=== PATIENT | female | born 1940 | race Two or more races ===

== ENCOUNTER → 2017-12-14 | Outpatient (CLI) | payer MEDICARE, OTHER ==
--- NOTE | 2017-12-14 15:35 | CT ---
EXAMINATION TYPE: CT brain wo con DATE OF EXAM: 12/14/2017 COMPARISON: None HISTORY: 77-year-old female transient cerebral ischemic attack TECHNIQUE: Examination was done in axial plane without intravenous contrast. Coronal and sagittal r econstructions performed. CT DLP: 1029.3 mGycm Automated exposure control for dose reduction was used. FINDINGS: There is no evidence of acute intracranial hemorrhage, acute ischemic changes, mass, mass-effect, or extra-axial fluid collection. There is no effacement of cerebral sulci or basal subarachnoid cister ns. There is no hydrocephalus. There is no midline shift. Blanchard-white matter distinction is preserv ed. Mild to moderate generalized cerebral cortical atrophy. Old lacunar infarct or prominent perivascular space right basal ganglia. Complete opacification of the right mastoid air cells with opacification into the middle ear cavity. Visualized paranasal sinuses are clear. Orbits and globes are intact. IMPRESSION: 1. [id number] atrophy and old lacunar infarct or prominent perivascular space in the right basa l ganglia. No acute intracranial abnormality seen. 2. Right-sided otomastoiditis.
== END | disposition home or self-care (01) ==
LOC: RADCTMAIN 13:22
PROVIDERS: ATTEND Psychiatry & Neurology Neurology
DX: G31.9 Degenerative disease of nervous system, unspecified (principal); Z88.0 Allergy status to penicillin; Z88.8 Allergy status to other drugs, medicaments and biological substances
CPT/HCPCS: 70450

== ENCOUNTER → 2018-05-03 | Outpatient (CLI) | payer MEDICARE ==
--- NOTE | 2018-05-03 13:17 | CT ---
EXAMINATION TYPE: CT chest wo con DATE OF EXAM: 05/03/2018 COMPARISON: NONE HISTORY: Pulmonary nodule CT DLP: 501 mGycm. Automated Exposure Control for Dose Reduction was Utilized. TECHNIQUE: CT scan of the thorax is performed without IV contrast. FINDINGS: LUNGS: There is a benign calcified granuloma at the left lung base and few other scattered left-sided calcified benign granulomas such as on series 4 image 10 and image 36. No suspicious pulmonary nodul es are seen. The lungs are grossly clear. There is no pleural effusion or pneumothorax seen. The t racheobronchial tree is patent. MEDIASTINUM: Lack of IV contrast is noted to limit evaluation for mediastinal and especially hilar ad enopathy. There are no definitive greater than 1 cm hilar or mediastinal lymph nodes. There are calc ified benign mediastinal lymph nodes. No cardiomegaly or pericardial effusion is seen. OTHER: 1.3 cm thyroid nodule is hypoattenuated. Moderate atherosclerosis of the thoracic aorta. Sever e coronary artery calcifications are seen. Very trace pericardial fluid is present. There is a partia l intrathoracic stomach. Severe atherosclerosis of the upper abdominal aorta. Mild multilevel degener ative changes of the spine are seen. Benign splenic granulomas are seen. IMPRESSION: 1. Calcified benign mediastinal and left lung parenchymal granulomas. No suspicious pulmonary nodule or mass. 2. Severe three-vessel coronary artery calcifications, marker of coronary artery disease. 3. Partial intrathoracic stomach. 4. Incidentally noted nodule that could be further evaluated with thyroid ultrasound if there is furt her concern. This measures 1.3 cm.
== END ==
LOC: RADCTMAIN 11:23
PROVIDERS: ATTEND Internal Medicine Sleep Medicine
DX: J84.10 Pulmonary fibrosis, unspecified (principal); I25.10 Atherosclerotic heart disease of native coronary artery without angina pectoris
CPT/HCPCS: 71250

== ENCOUNTER → 2019-11-18 | Outpatient (CLI) | payer MEDICARE ==
--- NOTE | 2019-11-18 10:54 | FL ---
ESOPHOGRAM. HISTORY: Dysphagia Esophagram was performed per the air contrast technique. The patient swallowed barium without diffic ulty or delay. There is evidence of presbyesophagus. There is no evidence for filling defect, mass or diverticulum. Small to Moderate fixed hiatal hernia. Subsequently single contrast cervical esophagram was performed which fails demonstrate evidence for a spiration penetration or mass. IMPRESSION: 1.Small to Moderate fixed hiatal hernia. 2. Presbyesophagus
== END | disposition home or self-care (01) ==
LOC: RADUSWWP 09:48
PROVIDERS: ATTEND Otolaryngology
DX: K22.8 Other specified diseases of esophagus (principal); K44.9 Diaphragmatic hernia without obstruction or gangrene; Z88.0 Allergy status to penicillin
CPT/HCPCS: 74220

== ENCOUNTER 2019-12-14 08:21 | Day surgery (SDC) | payer MEDICARE ==
[2019-12-12 14:39] VITALS: BMI 27.3
[~2019-12-14 08:21] MED LIST: DEXAMETHASONE SOD PHOSPHATE 4 MG/ML 1 ML VIAL IV ONE; FAMOTIDINE 20 MG/2 ML VIAL IV ONE; HYDROmorphone 0.5 MG/0.5 ML SYRINGE IVP PRN; LACTATED RINGERS 1,000 ML IV SCH; MIDAZOLAM 2 MG/2 ML VIAL IV PRN; ONDANSETRON 4 MG/2 ML VIAL IVP ONE; fentaNYL (PF) 50 MCG/ML 2 ML AMP IV PRN
[2019-12-14] MEDS ORDERED: ONDANSETRON 4 MG/2 ML VIAL IVP ONE (09:19)
[2019-12-14] MEDS ORDERED: DEXAMETHASONE SOD PHOSPHATE 10 MG/ML 1 ML VIAL IV ONE (09:19)
[2019-12-14] MEDS ORDERED: LIDOCAINE 1% (10MG/ML) FOR IV START INTRADERMA ONE (09:19)
[2019-12-14] MEDS ORDERED: LIDOCAINE 1% INJ 10MG/ML (20 ML MDV) ONE (10:10)
[2019-12-14] MEDS ORDERED: SUCCINYLCHOLINE CHLORIDE 100 MG/5 ML SYR IV ONE (10:10)
[2019-12-14] MEDS ORDERED: ePHEDrine SULFATE/0.9% NACL/PF 50 MG/5 ML SYRINGE IV ONE (10:10)
[2019-12-14] MEDS ORDERED: MIDAZOLAM 2 MG/2 ML VIAL ONE (10:10)
[2019-12-14] MEDS ORDERED: PROPOFOL 10 MG/ML 20 ML VIAL IV ONE (10:10)
[2019-12-14] MEDS ORDERED: fentaNYL (PF) 50 MCG/ML 2 ML AMP ONE (10:10)
--- NOTE | 2019-12-14 10:52 | P.OP ---
Date of Procedure: 12/14/19 Preoperative Diagnosis: Epiglottis cyst Postoperative Diagnosis: Laryngeal surface of epiglottis lesion Procedure(s) Performed: Microlaryngoscopy with excision epiglottis lesion Anesthesia: MEIA Surgeon: Shaheen Richardson Estimated Blood Loss (ml): 1 Pathology: other (Epiglottis cyst) Condition: stable Disposition: PACU Indications for Procedure: This 79-year-old white female presented for dysphagia and has been noted to have reflux and hiatal hernia barium swallow. She had a cyst noted on the laryngeal surface of epiglottis on flexible laryngoscopy. It is unknown as present and is not particularly symptomatic however the patient is concerned like this removed for pathologic evaluation Operative Findings: Patient had a rounded white lesion approximately 9 mm across on the laryngeal surface of epiglottis. It appeared more solid than cystic Description of Procedure: Patient was brought in the operative suite and placed in a supine position. Patient underwent induction of general anesthesia with oral endotracheal i ntubation without difficulty. Patient was prepped and draped in usual aseptic fashion. Gum guard was placed and direct laryngoscopy was performed with systematic evaluation of the base of tongue vallecula both piriform sinuses post cricoid area and endolarynx. No other lesions were noted other than the lesion on the laryngeal surface of the epiglottis. With the lesion in good visualization the laryngoscope was placed in suspension and the Zeiss microscope brought in position to evaluate this further. The lesion was then removed with up-biting cup forceps incrementally and removed grossly entirely but will final pathology on this
[2019-12-14 11:15] VITALS: TEMP 97
[2019-12-14 12:28] VITALS: BP 132/67; PULSE 67; RESP 18
== END 2019-12-14 12:40 | disposition home or self-care (01) ==
LOC: OR 08:21
PROVIDERS: ATTEND Otolaryngology
DX: C32.1 Malignant neoplasm of supraglottis (principal); I10 Essential (primary) hypertension; E78.5 Hyperlipidemia, unspecified; F17.200 Nicotine dependence, unspecified, uncomplicated; K21.9 Gastro-esophageal reflux disease without esophagitis; K44.9 Diaphragmatic hernia without obstruction or gangrene; Z88.0 Allergy status to penicillin; Z86.73 Personal history of transient ischemic attack (TIA), and cerebral infarction without residual deficits; Z79.899 Other long term (current) drug therapy; Z90.49 Acquired absence of other specified parts of digestive tract; Z90.710 Acquired absence of both cervix and uterus; Z98.890 Other specified postprocedural states; Z83.3 Family history of diabetes mellitus; Z82.5 Family history of asthma and other chronic lower respiratory diseases; Z82.61 Family history of arthritis
CPT/HCPCS: 88305; 88342; 31541; J2250; J1100; J2405; J2001; J3010; J0330; J2704